=== PATIENT | male | born 1980 | race Caucasian/White ===

== ENCOUNTER 2025-01-18 17:46 | Emergency (ER) | payer BC, SELFPAY ==
[2025-01-18] MEDS ORDERED: HYDROcodone/Acetaminophen 10/325 mg Tablet ONE (17:56)
[2025-01-18] MEDS ORDERED: Boostrix 0.5 ML (Tdap) VIAL (>/=7 yrs of age) ONE (18:13)
== END 2025-01-18 19:18 | disposition home or self-care (01) ==
LOC: MADERS 17:46
DX: T23.291A Burn of second degree of multiple sites of right wrist and hand, initial encounter (principal); T31.0 Burns involving less than 10% of body surface; Z23 Encounter for immunization; Z87.891 Personal history of nicotine dependence; X10.2XXA Contact with fats and cooking oils, initial encounter
CPT/HCPCS: 90471; 90715